=== PATIENT | male | born 1980 | race Caucasian/White ===

== ENCOUNTER 2022-02-22 16:42 | Outpatient (CLI) | payer MEDICARE, SELFPAY ==
--- NOTE | ~2022-02-22 | MR_ITS ---
EXAMINATION: MR brain/brain stem wo con DATE: 02/22/2022 17:37 INDICATION: Headache TECHNIQUE: Magnetic resonance imaging (MRI) of the brain and brainstem was performed without intraven ous contrast. Sequences included sagittal and axial T1-weighted SE, axial diffusion-weighted FS SE, a xial T2*-weighted GRE, axial T2-weighted FLAIR, and axial T2-weighted FSE. Apparent diffusion coeffic ient (ADC) maps were created. COMPARISON: None. FINDINGS: There are no areas of restricted diffusion to suggest acute infarction. No intracranial hemorrhage or abnormal intracranial mass lesion. A couple small foci of nonspecific increased T2-weighted signal i ntensity in the bilateral parietal periventricular white matter which is within normal limits for age . There are no intraparenchymal signal abnormalities seen on the other pulse sequences. The ventricle s are symmetric and normal in size. There are no abnormal extra-axial fluid collections. Flow voids a re seen in the cerebral arteries on the T2-weighted sequences consistent with their expected patency. Fluid nearly filling the right frontal sinus with peripheral moderate mucosal thickening. Additional moderate mucosal thickening in the and sphenoid sinus, the right maxillary sinus and the anterior ri ght ethmoid air cells. Mild mucosal thickening the left ethmoid and maxillary sinuses. Very small ayesha ateral mastoid effusions. Orbits and soft tissues are unremarkable. IMPRESSION: 1. A couple nonspecific tiny foci of bilateral parietal white matter T2 hyperintensity which is withi n normal limits for age. No acute intracranial process. 2. Prominent sinus disease with fluid nearly filling the right frontal sinus suspicious for acute sin usitis. Reviewed, dictated and finalized at location A. IMPRESSION: 1. A couple nonspecific tiny foci of bilateral parietal white matter T2 hyperin tensity which is within normal limits for age. No acute intracranial process. 2. Prominent sinus disease with fluid nearly filling the right frontal sinus nettles spicious for acute sinusitis.
== END 2022-02-22 16:43 | disposition home or self-care (01) ==
PROVIDERS: Visit Provider Internal Medicine
DX: R51.9 Headache, unspecified (principal); R93.0 Abnormal findings on diagnostic imaging of skull and head, not elsewhere classified
CPT/HCPCS: 70551